=== PATIENT | female | born 1990 | race Caucasian/White ===

== ENCOUNTER → 2017-09-05 | Outpatient (CLI) | payer BC | LOC: COL.LAB 10:50 → SUN.DIA 11:17 | DX: O24.419 Gestational diabetes mellitus in pregnancy, unspecified control (principal); Z3A.30 30 weeks gestation of pregnancy | CPT/HCPCS: G0108 ==

== ENCOUNTER → 2017-09-21 | Outpatient (CLI) | payer BC | LOC: SUN.DIA 08:34 | DX: O24.419 Gestational diabetes mellitus in pregnancy, unspecified control (principal); Z3A.32 32 weeks gestation of pregnancy | CPT/HCPCS: G0108 ==

== ENCOUNTER → 2017-10-18 | Outpatient (CLI) | payer BC | LOC: SUN.DIA 10-11 15:59 | DX: O24.419 Gestational diabetes mellitus in pregnancy, unspecified control (principal); Z33.1 Pregnant state, incidental; Z3A.36 36 weeks gestation of pregnancy | CPT/HCPCS: G0108 ==

== ENCOUNTER 2017-10-27 05:20 | Inpatient (IN) | payer BC ==
[~2017-10-27] VITALS: Ht 172.7 cm; Wt 98.6 kg
[2017-10-27] VITALS (23 sets, daily range): BP systolic 105–167; BP diastolic 57–89; PULSE 76–97; TEMP 97.6–98.4
[2017-10-27] MEDS ORDERED: PRENATAL MVI PO (05:43)
[2017-10-27] MEDS ORDERED: CLARITIN 1010 MG/TAB PO (05:45)
[2017-10-27 06:55] LABS: BASO % 0.3 % (0.0-2.0); EOS % 0.4 % (0-4.0); GRAN # 8.2 (1.4-6.5); GRAN % 73.6 % (42.2-75.2); HEMATOCRIT 38.9 % (37.0-47.0); HEMOGLOBIN 13.1 g/dl (12.5-16.0); LYMPH # 1.8 (1.2-3.4); LYMPH % 16.5 % (20.0-51.0); MEAN CELL VOLUME 84 fl (80.0-100.0); MEAN CORPUSCULAR HEMOGLOBIN 28 pg (27.0-31.0); MEAN CORPUSCULAR HGB CONC 34 g/dl (33.0-37.0); MEAN PLATELET VOLUME 10.5 fl (7.4-10.4); MONO # 0.9 (0.1-0.6); MONO % 8.3 % (1.7-9.3); PLATELET COUNT 236 K/mm3 (130-400); RED BLOOD COUNT 4.61 M/mm3 (4.10-5.30); REDCELL DISTRIBUTION WIDTH-CV 14.4 % (11.5-14.5)
[2017-10-28 07:15] VITALS: BP 136/85; PULSE 85; TEMP 98.1
[2017-10-28] MEDS ORDERED: IBU800 M1 PO (08:40)
[2017-10-28 15:55] VITALS: BP 142/82; PULSE 86; TEMP 98.1
[2017-10-28 19:35] VITALS: BP 141/85; PULSE 90; TEMP 98.4
[2017-10-29 06:35] VITALS: BP 137/85; PULSE 86; TEMP 97
== END 2017-10-29 13:50 | disposition home or self-care (01) | DRG 767 ==
LOC: LDRO 05:20 → LDR 05:55 → OB 12:10
PROVIDERS: Obstetrics & Gynecology
PROC: 10E0XZZ Delivery of Products of Conception, External Approach (ICD-10-PCS; principal; 2017-10-27)
PROC: 10D17Z9 Manual Extraction of Products of Conception, Retained, Via Natural or Artificial Opening (ICD-10-PCS; 2017-10-27)
PROC: 0HQ9XZZ Repair Perineum Skin, External Approach (ICD-10-PCS; 2017-10-27)
PROC: 0UQMXZZ Repair Vulva, External Approach (ICD-10-PCS; 2017-10-27)
DX: O70.0 First degree perineal laceration during delivery (principal); Z37.0 Single live birth; Z3A.37 37 weeks gestation of pregnancy; O24.420 Gestational diabetes mellitus in childbirth, diet controlled; Z22.330 Carrier of Group B streptococcus; O13.5 Gestational [pregnancy-induced] hypertension without significant proteinuria, complicating the puerperium; O62.2 Other uterine inertia; O73.0 Retained placenta without hemorrhage
CPT/HCPCS: J0690; J2540; J2590; J2795; J7120

== ENCOUNTER → 2017-11-15 | Outpatient (CLI) | payer BC ==
[~2017-11-15] MED LIST: CLARITIN 1010 MG/TAB PO; IBU800 M1 PO; PRENATAL MVI PO
== END ==
LOC: LAC 11:43
DX: Z39.1 Encounter for care and examination of lactating mother (principal); Z71.89 Other specified counseling

== ENCOUNTER 2019-07-16 07:55 | Inpatient (IN) | payer BC ==
[~2019-07-16] VITALS: Ht 172.7 cm; Wt 94.1 kg
[2019-07-16] VITALS (32 sets, daily range): BP systolic 99–141; BP diastolic 51–89; PULSE 68–92; TEMP 97.9–98.4
[2019-07-16 10:01] LABS: BASO % 0.2 % (0.0-2.0); EOS % 0.2 % (0-4.0); GRAN # 9.9 (1.4-6.5); GRAN % 79.5 % (42.2-75.2); HEMATOCRIT 40.7 % (37.0-47.0); HEMOGLOBIN 13.5 g/dl (12.5-16.0); LYMPH # 1.6 (1.2-3.4); MEAN CELL VOLUME 85 fl (80.0-100.0); MEAN CORPUSCULAR HEMOGLOBIN 28 pg (27.0-31.0); MEAN CORPUSCULAR HGB CONC 33 g/dl (33.0-37.0); MEAN PLATELET VOLUME 10.2 fl (7.4-10.4); MONO # 0.8 (0.1-0.6); MONO % 6.5 % (1.7-9.3); PLATELET COUNT 212 K/mm3 (130-400); RED BLOOD COUNT 4.78 M/mm3 (4.10-5.30)
[2019-07-17 00:45] VITALS: BP 117/70; PULSE 71; TEMP 97.7
[2019-07-17 08:45] VITALS: BP 125/78; PULSE 80; TEMP 98.3
[2019-07-17 11:53] VITALS: BP 123/81; PULSE 72; TEMP 97.4
[2019-07-17 21:20] VITALS: BP 139/86; PULSE 71; TEMP 97.8
[2019-07-18 08:10] VITALS: BP 128/77; PULSE 71; TEMP 97.5
[2019-07-18] MEDS ORDERED: IBU600 MG PO (10:31)
== END 2019-07-18 13:00 | disposition home or self-care (01) | DRG 807 ==
LOC: LDRO 07:55 → LDR 09:15 → OB 21:05
PROVIDERS: Obstetrics & Gynecology; ADMIT Student in an Organized Health Care Education/Training Program
PROC: 10E0XZZ Delivery of Products of Conception, External Approach (ICD-10-PCS; principal; 2019-07-16)
PROC: 0UQMXZZ Repair Vulva, External Approach (ICD-10-PCS; 2019-07-16)
DX: O69.81X0 Labor and delivery complicated by cord around neck, without compression, not applicable or unspecified (principal); Z37.0 Single live birth; S39.848A Other specified injuries of external genitals, initial encounter; Z3A.39 39 weeks gestation of pregnancy; O69.2XX0 Labor and delivery complicated by other cord entanglement, with compression, not applicable or unspecified
CPT/HCPCS: J2590; J7120

== ENCOUNTER → 2019-07-25 | Outpatient (CLI) | payer BC ==
[~2019-07-25] MED LIST changes: +IBU600 MG PO
--- NOTE | 2019-07-25 15:34 | NUR ---
Pt, Sandra Parish, presents for outpatient consult with nine day old baby boy, Claus Parish, for a evaluation because of a sore left nipple. Claus was born on [birth year] by and is Sandra's second baby. His weight was 9#5.2oz (4230 gms). Today Claus weighs 8#15.6oz (4072 gms). Pt's left nipple does have a compression wound consistent with a shallow latch. She is advised to reposition her hand to be able to compress more areola into baby's mouth with latch and then how to tug his bottom lip out after latching. Pt states the latch is more comfortable. Pt did take a break from the left breast yesterday and pumped instead. States she collects 1.5-2oz and feeds that back to Claus. After nursing bilaterally today Claus has a weight gain of 2.5oz (70 gms). POC: Continue ad beatris using better compression of the breast and support of breast after Claus is latched. F/U: Consider weight check next week, and/or as scheduled for one month appt. Questions invited and answered.
== END ==
LOC: LAC 14:45
DX: Z39.1 Encounter for care and examination of lactating mother (principal); Z71.89 Other specified counseling